=== PATIENT | male | born 1985 | race Caucasian/White ===

== ENCOUNTER 2025-02-07 13:27 | Emergency (ER) | payer OTHER, SELFPAY ==
[2025-02-07 13:33] VITALS: BP 104/56
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
== END 2025-02-07 15:36 | disposition home or self-care (01) ==
LOC: EMR 13:27
PROVIDERS: EMERGENCY PHYSICIAN Emergency Medicine
DX: Z04.6 Encounter for general psychiatric examination, requested by authority (principal); E03.9 Hypothyroidism, unspecified; F17.290 Nicotine dependence, other tobacco product, uncomplicated; G40.909 Epilepsy, unspecified, not intractable, without status epilepticus; F90.9 Attention-deficit hyperactivity disorder, unspecified type; Z53.21 Procedure and treatment not carried out due to patient leaving prior to being seen by health care provider
CPT/HCPCS: 99281